=== PATIENT | female | born 1960 | race Caucasian/White ===

== ENCOUNTER 2022-09-03 09:36 | Emergency (ER) | payer OTHER ==
[~2022-09-03] VITALS: Ht 157.5 cm; Wt 71.0 kg
[2022-09-03 09:46] VITALS: BP 161/94
--- NOTE | 2022-09-03 10:14 | NUR ---
62 Y/O FEMALE BIB DAUGHTER C/O GEN ABD PAINX1 WEEK. PER PT SHE HAD 3X EPISODES OF VOMITING WITH BLOOD TINGED VOMITUS, DENIES ANY VOMITING SINCE, DENIES ANY DIARRHEA, FEVER, CHILLS. PMH: MAGDALENE MARCUM
[2022-09-03 11:25] LABS: BASOPHILS # (AUTO) 0.1 K/uL (0.00-0.22); BASOPHILS % (AUTO) 1.2 % (0.0-2.0); EOSINOPHILS # (AUTO) 0.2 K/uL (0-0.4); EOSINOPHILS % (AUTO) 2.1 % (0.0-4.0); HEMATOCRIT 39.8 % (36-48); LYMPHOCYTES # (AUTO) 2.9 K/uL (2.5-16.5); MEAN CORPUSCULAR HEMOGLOBIN 26 pg (27-31); MEAN CORPUSCULAR HGB CONC 33 g/dL (33-37); MEAN CORPUSCULAR VOLUME 78.9 fL (80-94); MONOCYTES # (AUTO) 0.6 K/uL (0.8-1.0); MONOCYTES % (AUTO) 6.8 % (1.7-9.3); NEUTROPHILS # (AUTO) 4.4 K/uL (1.8-7.7); NEUTROPHILS % (AUTO) 53.9 % (42.2-75.2); PLATELET COUNT (AUTO) 351 K/uL (140-450); RED BLOOD CELL COUNT(AUTO) 5.04 MIL/uL (4.20-5.40); RED CELL DISTRIBUTION WIDTH 15.6 % (11.6-13.7); WHITE BLOOD COUNT (AUTO) 8.2 K/uL (4.8-10.8)
[2022-09-03 11:44] LABS: ALBUMIN 3.3 g/dL (3.4-5.0); ANION GAP 13.2 (8-16); CARBON DIOXIDE 27.6 mmol/L (21-32); POTASSIUM 3.8 mmol/L (3.5-5.1); TOTAL BILIRUBIN 0.5 mg/dL (0.0-1.0)
[2022-09-03] MEDS ORDERED: ONDA-188 SL (12:01)
[2022-09-03] MEDS ORDERED: ACET-10509 PO (12:01)
[2022-09-03 12:55] VITALS: BP 154/89
== END 2022-09-03 13:55 | disposition home or self-care (01) ==
LOC: MED 09:36
DX: R11.2 Nausea with vomiting, unspecified (principal); Z20.822 Contact with and (suspected) exposure to COVID-19; R10.9 Unspecified abdominal pain; J11.1 Influenza due to unidentified influenza virus with other respiratory manifestations; K76.0 Fatty (change of) liver, not elsewhere classified; K21.9 Gastro-esophageal reflux disease without esophagitis; Z79.899 Other long term (current) drug therapy
CPT/HCPCS: 36415; 80053; 83605; 83690; 85025; 99284

== ENCOUNTER 2023-12-12 09:56 | Emergency (ER) | payer OTHER ==
[~2023-12-12] VITALS: Ht 165.1 cm; Wt 77.1 kg
[~2023-12-12 09:56] MED LIST: ACET-10509 PO; ONDA-188 SL
[2023-12-12 10:35] VITALS: BP 146/108; PULSE 79; RESP 18; TEMP 98.5; O2SAT 79
[2023-12-12] MEDS ORDERED: NAPR-1704 PO (12:27)
[2023-12-12] MEDS ORDERED: PROM118S6 PO (12:27)
[2023-12-12 12:32] VITALS: BP 135/82; PULSE 78; RESP 18; TEMP 98.5; O2SAT 99
[2023-12-12 13:10] LABS: FLU A ANTIGEN negative (NEGATIVE); FLU B ANTIGEN negative (NEGATIVE)
== END 2023-12-12 12:32 | disposition home or self-care (01) ==
LOC: MED 09:56
DX: B34.9 Viral infection, unspecified (principal); Z20.822 Contact with and (suspected) exposure to COVID-19; K21.9 Gastro-esophageal reflux disease without esophagitis; E03.9 Hypothyroidism, unspecified; E11.9 Type 2 diabetes mellitus without complications; Z79.4 Long term (current) use of insulin; Z79.899 Other long term (current) drug therapy
CPT/HCPCS: 71045; 99284